=== PATIENT | male | born 1950 | race Caucasian/White ===

== ENCOUNTER 2017-05-18 12:17 | Outpatient (CLI) | payer MEDICARE, OTHER | END 2017-05-18 23:59 | disposition short-term general hospital (02) | LOC: EMS 12:17 | PROVIDERS: ATTEND Surgery | DX: S81.812A Laceration without foreign body, left lower leg, initial encounter (principal); W29.3XXA Contact with powered garden and outdoor hand tools and machinery, initial encounter; Y93.89 Activity, other specified | CPT/HCPCS: A0425; A0427; A0888 ==

== ENCOUNTER 2017-07-14 05:23 | Outpatient (CLI) | payer MEDICARE, OTHER | END 2017-07-14 05:24 | disposition short-term general hospital (02) | LOC: EMS 05:23 | PROVIDERS: ATTEND Surgery | DX: R58 Hemorrhage, not elsewhere classified (principal) | CPT/HCPCS: A0425; A0429 ==

== ENCOUNTER 2021-06-27 08:00 | Outpatient (CLI) | payer MEDICARE, OTHER ==
--- NOTE | 2021-06-27 17:22 | XRAY Report ---
PROCEDURE: Finger(s) RT INDICATIONS: R 2ND DIGIT, PARONYCHIA TECHNIQUE: AP hand, 2 views of the second finger(s) acquired. COMPARISON: None FINDINGS: Bones: Small calcifications over radial aspect of second the IP joint are seen. Osteoarthritic change s are noted involving second PIP and DIP joints. No acute fracture or dislocation. No suspicious bony lesions. Soft tissues: Mild soft tissue swelling surrounding second the appendectomy joint is noted. IMPRESSION: 1. Osteoarthritic changes in second digit. No acute fracture or dislocation. 2. Suggestion of old injury involving radial collateral ligament of second DIP joint with well cortic ated fragments. Reviewed by: Stef Ramirez MD on 06/27/2021 5:20 PM PDT Approved by: Stef Ramirez MD on 06/27/2021 5:20 PM PDT Station ID: [id number]
== END 2021-06-27 23:59 | disposition home or self-care (01) ==
LOC: DI.N 08:00
PROVIDERS: ATTEND Nurse Practitioner
DX: L03.011 Cellulitis of right finger (principal); M19.041 Primary osteoarthritis, right hand